=== PATIENT | female | born 1980 | race Caucasian/White ===

== ENCOUNTER 2017-03-30 21:01 | Emergency (ER) | payer OTHER | END 2017-03-30 23:23 | disposition short-term general hospital (02) | LOC: ER 21:01 | DX: I47.1 Supraventricular tachycardia (principal); I10 Essential (primary) hypertension; J45.909 Unspecified asthma, uncomplicated; F12.10 Cannabis abuse, uncomplicated | CPT/HCPCS: 36415; 96365; 96375; J0153; J0282 ==